=== PATIENT | female | born 1975 | race Caucasian/White ===

== ENCOUNTER → 2023-11-18 13:31 | Outpatient (REF) | payer BC, SELFPAY ==
[2023-11-18 14:03] VITALS: BP 116/68; BP_SYST 70
== END ==
LOC: RADI 13:31
PROVIDERS: ATTENDING PHYSICIAN Otolaryngology; FAMILY PHYSICIAN Physician Assistant Medical
DX: E04.1 Nontoxic single thyroid nodule (principal)
CPT/HCPCS: 88173; 10005

== ENCOUNTER → 2024-06-17 15:23 | Outpatient (REF) | payer BC, SELFPAY | LOC: WDC 15:23 | PROVIDERS: ATTENDING PHYSICIAN Physician Assistant Medical | DX: Z12.31 Encounter for screening mammogram for malignant neoplasm of breast (principal) | CPT/HCPCS: 77063; 77067 ==

== ENCOUNTER → 2024-07-21 06:15 | Day surgery (SDC) | payer BC, SELFPAY | LOC: GI 06:15 | PROVIDERS: ATTENDING PHYSICIAN Internal Medicine; FAMILY PHYSICIAN Physician Assistant Medical | DX: Z12.11 Encounter for screening for malignant neoplasm of colon (principal); C20 Malignant neoplasm of rectum; D12.2 Benign neoplasm of ascending colon; D12.3 Benign neoplasm of transverse colon; D12.5 Benign neoplasm of sigmoid colon; K21.9 Gastro-esophageal reflux disease without esophagitis; K29.50 Unspecified chronic gastritis without bleeding; B96.81 Helicobacter pylori [H. pylori] as the cause of diseases classified elsewhere | CPT/HCPCS: 45385; 45380; 43239; 88305; 88342 ==

== ENCOUNTER → 2024-07-28 11:35 | Outpatient (REF) | payer BC, SELFPAY | LOC: RAD 11:35 | PROVIDERS: ATTENDING PHYSICIAN Surgery; FAMILY PHYSICIAN Physician Assistant Medical | DX: C20 Malignant neoplasm of rectum (principal) | CPT/HCPCS: 71260; 74177; Q9967 ==

== ENCOUNTER → 2024-08-01 11:28 | Outpatient (REF) | payer BC, SELFPAY | LOC: MRI 3T 11:28 | PROVIDERS: ATTENDING PHYSICIAN Surgery; FAMILY PHYSICIAN Physician Assistant Medical | DX: C20 Malignant neoplasm of rectum (principal) | CPT/HCPCS: 72197; A9575 ==

== ENCOUNTER 2024-10-19 06:16 | Day surgery (SDC) | payer BC, SELFPAY ==
[2024-10-18 10:48] LABS: Hematocrit 33.3 % (37.0-47.0); Hemoglobin 10.9 g/dL (12.0-16.0); Mean Corp Hgb Conc. 32.7 g/dL (33.0-37.0); Mean Corpuscular Hgb 31.3 pg (27.0-31.0); Mean Corpuscular Volume 95.7 fL (81.0-99.0); Mean Platelet Volume 8.9 fL (7.4-10.4); Platelet Count 220 10^3/uL (130-400); Red Blood Cell Count 3.48 10^6/uL (4.20-5.40); Red Cell Dist. Width 19.5 % (11.5-14.5); White Blood Cell Count 3.3 10^3/uL (4.8-10.8)
[2024-10-18 12:34] LABS: Blood Urea Nitrogen 9 mg/dl (7-17); Calcium 8.6 mg/dl (8.4-10.2); Carbon Dioxide 24 mmol/L (22-30); Chloride 105 mmol/L (98-107); Glucose 89 mg/dl (70-99); Potassium 3.5 mmol/L (3.5-5.1); Sodium 137 mmol/L (135-145); eGFR > 60.00
[2024-10-18 13:31] VITALS: BMI 25.1
[2024-10-19 06:40] VITALS: BP 121/73
[2024-10-19] MEDS: TYLENOL 1000 MG PO (06:50)
[2024-10-19] MEDS: NORMOSOL-R/PLASMALYTE-A 1000 IV (06:50)
[2024-10-19 06:55] VITALS: BMI 25.1
[2024-10-19 08:27] VITALS: BP 102/53
[2024-10-19 08:30] VITALS: BP 96/60
[2024-10-19 08:45] VITALS: BP 103/61
[2024-10-19 09:00] VITALS: BP 109/67
== END 2024-10-19 09:40 | disposition home or self-care (01) ==
LOC: SDS 06:16
PROVIDERS: ATTENDING PHYSICIAN Surgery; FAMILY PHYSICIAN Physician Assistant Medical
DX: C20 Malignant neoplasm of rectum (principal)
CPT/HCPCS: 36561; 36415; 71045; 76000; 80048; 85027; C1788

== ENCOUNTER 2024-11-02 13:45 | Inpatient (IN) | payer BC, SELFPAY ==
[2024-11-02] VITALS (13 sets, daily range): BP systolic 84–116; BP diastolic 52–70; BMI 29.0
--- NOTE | 2024-11-02 10:17 | ED.GENMED ---
History of Present Illness
General
Chief Complaint: Fainting/Passed Out
Source: patient and spouse
Exam Limitations: none
Time Seen by Provider: 11/02/24 09:38
Nursing documentation reviewed up to this point in time: agreed with
History of Present Illness
History of Present Illness:
The patient is a very pleasant 49-year-old female with a past medical history of rectal cancer followed by Dr. English. Patient reports she last had chemotherapy 8 days ago. Patient is here with complaints of about 1 week of subjective fever,
chills, body ache, fatigue, and cough. Patient reports that things seem to intensify last night, as her chills increased and her cough worsened. Patient reports right upper back pain, especially when she coughs. Patient reports multiple family
members also have cough and congestion. Patient reports that when she went to stand up this morning she felt lightheaded and called out for her . Patient reports that she passed out but did not fall due to her assisting her.
Patient reports she just feels dehydrated. Patient denies a history of PE and DVT
Past History
Past History
ED Past Medical History: Cancer (Rectal cancer)
ED Past Surgical History: Other
Social History
Tobacco: Non-smoker
Alcohol: Other
Drug: None
Personal:
Living: with family
Employment: Other
Family History
Family History: Other
Review of Systems
Review of Systems
Allergies reviewed?: Yes
All Other Systems: ROS reviewed and negative except as documented in HPI and ROS
Constitutional: Reports fever, fatigue and chills
Respiratory: Reports cough
Cardiac: Reports syncope
ABD/GI: Reports diarrhea
: Reports no symptoms
Musculoskeletal: Reports other (Right upper back pain)
Neurological: Reports no symptoms
Endocrine: Reports no symptoms
Hematologic/Lymphatic: Reports no symptoms
Psychiatric: Reports no symptoms
Phy Exam
Physical Exam
Physical Exam:
Physical Exam
General: no apparent distress, not acutely ill
Neck: supple. no meningeal signs. normal psoterior pharynx
Heart: s1/s2 regular rate and rhythm, no murmur. equal radial pulses.
Lungs: no acute respiratory distress. clear bilaterally
Abdomen: normal bowel sounds. not tender. no CVAT
Neuro: alert and oriented. no focal neurological deficits
Skin: no rash
Psychiatric: well kept. interactive and cooperative
Extremities: no edema. no calf tenderness. negative homans. good distal pulses
Course
Orders/Labs/Results
Orders:
Orders
11/02/24 09:32
ECG [Electrocardiogram (*1)] Urgent
Reason for Study: Syncope
11/02/24 09:33
EKG- Treatment ONCE
11/02/24 10:02
CR Chest - 2 Views Urgent
Comment:
Reason For Exam: cough, chemo, R upper back pain
11/02/24 10:04
0.9% Sodium Chloride 1000 ml [Nss] 1,000 ml IV BOLUS
11/02/24 10:11
Complete Blood Count/With Diff Urgent
Comprehensive Metabolic Panel Urgent
Lactate Level [Lactic Acid] Urgent
Manual Differential Urgent
PTT Urgent
Prothrombin Time Urgent
Troponin I Urgent
11/02/24 10:26
COVID-19 Antigen Urgent
Source: Nasal Swab
Influenza A+B Rapid Molecular Urgent
TIMBO Source: Nasal Swab
Specimen Description:
11/02/24 10:45
0.9% Sodium Chloride 250 ml [Nss] 250 ml IV BOLUS
11/02/24 11:13
Blood Culture Urgent
TIMBO Source: Blood/Venous
Specimen Description:
11/02/24 11:38
Piperacillin/Tazo 3.375 Gram [Zosyn] 3.375 gram in 50 ml IV NOW
Vancomycin [Vancocin] 2,000 mg 0.9% Sodium Chloride 500 ml [Nss] 500 ml IV NOW
Abnormal Lab Results
11/02/24
10:11
WBC 4.7 L 10^3/uL
(4.8-10.8)
RBC 3.39 L 10^6/uL
(4.20-5.40)
Hgb 10.4 L g/dL
(12.0-16.0)
Hct 30.7 L %
(37.0-47.0)
RDW 17.6 H %
(11.5-14.5)
Plt Count 107 L 10^3/uL
(130-400)
Band Neutrophils 15 H %
(0-3)
Lymphocytes (Manual) 5 L %
(20-51)
PT 15.3 H Sec
(11.4-14.6)
Sodium 130 L mmol/L
(135-145)
Carbon Dioxide 18 L mmol/L
(22-30)
Glucose 180 H mg/dl
(70-99)
Lactic Acid 4.3 H* mmol/L
(0.7-2.0)
Calcium 8.0 L mg/dl
(8.4-10.2)
ALT 43 H U/L
(0-35)
Total Protein 5.7 L g/dl
(6.3-8.2)
Albumin 3.2 L g/dl
(3.5-5.0)
11/02/24 10:11
11/02/24 10:11
Vital Signs
Initial and Last Documented VS:
Initial Vital Signs
Pulse Resp BP Pulse Ox
75 16 84/52 100
11/02/24 09:24 11/02/24 09:24 11/02/24 09:24 11/02/24 09:24
Last Documented Vital Signs
Temp Pulse Resp BP Pulse Ox
97.6 F 83 21 94/58 100
11/02/24 09:44 11/02/24 11:00 11/02/24 11:00 11/02/24 11:00 11/02/24 11:00
MDM/Problems Addressed
Differential Diagnosis Includes:
Acute dehydration, pneumonia, neutropenia, anemia
MDM/Problems Addressed:
Patient presents with acute body aches, chills, right upper back pain and cough
Chronic conditions affecting care: Cancer
Acute Exacerbation and/or Progression of Chronic Illness:
Patient's chemotherapy may be causing an acute neutropenia which in the setting of pneumonia can cause more worsening infection
Acute Exacerbation and/or Progression of Chronic Illness: Cancer
*Radiology
Radiology exam reviewed: preliminary read by ED provider (Right-sided infiltrate. Chest x-ray reviewed by me)
*Pulse Oximetry
Patient hypoxic: no
*EKG
Interpreted by ED Provider?: Yes
Interpretation: normal
Comparison EKG: no comparison EKG present
Rate: normal
Rhythm: sinus
[place]: normal axis
Interval: normal interval
QRS Pattern: normal QRS
Ischemia: no ischemia
*Mail Handler Sorter Interpretation
Rate: normal
Interpretation: normal
Rhythm: sinus
*Critical Care Note
Total Time (30-74mins, 75-104mins- exclusive of procedures): Not Applicable (45 minutes)
comment:
45 minutes of critical care given to the patient including reviewing her lab work, chest x-ray, and reviewing her outpatient office records, as well as reassessing her blood pressure
Data Reviewed
Review of Other/Old Records Reveals: Progress Notes (Office note reviewed from Dr. Xiang Baltazar from July 2024 discussing patient's rectal cancer diagnosis)
ED Attending Note
-
Portions of this chart may have been created with voice recognition software.� Occasional wrong word or��sound alike� substitutions may have occurred due to the inherent limitations of voice recognition software.
Discharge Plan
Departure
Patient Disposition: Admit
Date of Disposition: 11/02/24
Time of Disposition: 11:39
Admit to: Telemetry
Presentation/result/management discussed w/ accepting MD/DO: Hospitalist
Patient with high blood pressure during this ER visit?: No
Condition: Fair
Covid-19: Negative COVID-19
Discharge Problem:
Pneumonia, Transient hypotension, Acute lactic acidosis
Prescriptions:
No Action
ibuprofen [Advil] 200 mg Tablet
400 mg PO DAILYPRN PRN (Reason: mild pain)
simethicone [Gas-X] 80 mg Tablet,Chewable
160 mg PO DAILYPRN PRN (Reason: gas pains)
Fruit and Vegetable Daily 5-6-150 mg Capsule
1 cap PO DAILY
Folfox
1 dose IV DIRECTED
Rx Instructions:
FOLFOX regimen, last doses were 10/25/24, Oxaliplatin 154mg, leucovorin 724mg, Fluorouracil 720mg ivp and 4340mg iv over 46hrs
Referrals:
Kathy King PA-C [Family Provider] -
Interventions
Interventions:
*Risk Screen - Suicide Last Done: 11/02/24 09:24
*General Assessment Last Done: 11/02/24 09:24
*ED COVID-19 Vaccine History Last Done: 11/02/24 09:24
ED- Cardiac Assessment Last Done: 11/02/24 09:49
ED- Neurological Assessment Last Done: 11/02/24 09:49
Discharge Date and Time
Print Language: UKRAINIAN
[2024-11-02] MEDS: NSS 1000 IV ×2 (10:24→14:40)
[2024-11-02 10:39] LABS: Hematocrit 30.7 % (37.0-47.0); Hemoglobin 10.4 g/dL (12.0-16.0); Mean Corp Hgb Conc. 33.9 g/dL (33.0-37.0); Mean Corpuscular Hgb 30.7 pg (27.0-31.0); Mean Corpuscular Volume 90.6 fL (81.0-99.0); Mean Platelet Volume 9.3 fL (7.4-10.4); Platelet Count 107 10^3/uL (130-400); Red Blood Cell Count 3.39 10^6/uL (4.20-5.40); Red Cell Dist. Width 17.6 % (11.5-14.5); White Blood Cell Count 4.7 10^3/uL (4.8-10.8)
[2024-11-02 10:42] LABS: INR 1.15; PT 15.3 Sec (11.4-14.6)
[2024-11-02 10:43] LABS: APTT 28.5 Sec (23.4-35.0); Lactic Acid 4.3 mmol/L (0.7-2.0)
[2024-11-02 10:48] LABS: AST (SGOT) 30 U/L (14-36); Albumin 3.2 g/dl (3.5-5.0); Alkaline Phosphatase 62 U/L (38-126); Blood Urea Nitrogen 12 mg/dl (7-17); Carbon Dioxide 18 mmol/L (22-30); Chloride 102 mmol/L (98-107); Estimated Creatinine Clearance 91 ml/min; Glucose 180 mg/dl (70-99); Potassium 4.2 mmol/L (3.5-5.1); Sodium 130 mmol/L (135-145); Total Bilirubin 0.4 mg/dl (0.2-1.3); Total Protein 5.7 g/dl (6.3-8.2); eGFR > 60.00
[2024-11-02 10:54] LABS: Troponin I < 0.012 ng/ml
[2024-11-02 10:56] LABS: ALT (SGPT) 43 U/L (0-35)
[2024-11-02 11:02] LABS: COVID-19 Antigen Negative (Negative)
[2024-11-02 11:07] LABS: Absolute Neutrophils -Man Diff 4.2 10^3/uL (1.4-6.5); Band Neutrophils 15 % (0-3); Lymphocytes 5 % (20-51); Monocytes 5 % (2-9); Normal RBC Morphology Yes; Platelets Checked Yes; Segmented Neutrophils 75 % (42-75); Total Cells Counted 100
[2024-11-02] MEDS: NSS 250 IV (11:32)
[2024-11-02] MEDS: ZOSYN 50 IV (11:53)
--- NOTE | 2024-11-02 12:04 | HPS.HSE ---
Family Physician
-
Family Physician: Kathy King PA-C
Chief Complaint
-
fever
cough
chills
History of Present Illness
49-year-old female with a past medical history of rectal cancer followed by Dr. English presented to us with fever, chills, cough which is productive since the . patient stated temp of 102. she took ibuprofen as well as Mucinex with some relief
in her symptoms. Last night her symptoms intensified with fever chills, generalized body ache, fatigue and cough. She complained of headache today morning. Today morning, she felt lightheaded and passed out for few seconds. Patient denied chest
pain or shortness of breath. Patient denied abdominal pain, nausea, vomiting. She has diarrhea from chemo. Her chemo was 8 days ago. She is due for chemo on Thursday. Patient denied dysuria hematuria.
On arrival she was noted to have elevated lactic acid fall, patient was hypotensive. Chest x-ray with pneumonia. Patient received normal saline, Zosyn, Vanco in ER blood culture sent from ER. Admitting for further management
Medical History
Past Medical History
Past Medical History: Reports Other
Additional Past Medical History:
Insomnia
GERD
Laryngeal spasm
Rectal pain
Past Surgical History: Reports Other
Additional Past Surgical History:
Liposuction
Social History
Tobacco: Former Smoker
Alcohol: Occasional
Drug: None
Personal:
Living: With Family
Family History
Family History: Not pertinent
Allergies / Home Medications
Allergies reflects when Allergies were last updated in [employer].
Home Medications with original date entered in [employer]
Allergy/Medication List:
Allergies
Allergy/AdvReac Type Severity Reaction Status Date / Time
No Known Allergies Allergy Verified 11/02/24 09:29
Home Medications
Folfox 1 dose IV DIRECTED 11/02/24
ibuprofen 200 mg tablet (Advil) 400 mg PO DAILYPRN PRN mild pain 11/02/24
rctafbkp-lvohaj-kjreo extract 5 mg-6 mg-150 mg capsule (Fruit and Vegetable Daily) 1 cap PO DAILY 11/02/24
simethicone 80 mg chewable tablet 160 mg PO DAILYPRN PRN gas pains 11/02/24
Review of Systems
-
Constitutional: Reports Fever, Fatigue and Chills
EENT: Reports No Symptoms
Respiratory: Reports Cough
Cardiac: Reports Syncope
Abdomen/GI: Reports No Symptoms
: Reports No Symptoms
Musculoskeletal: Reports No Symptoms
Skin: Reports No Symptoms
Neurological: Reports Weakness
Endocrine: Reports No Symptoms
Hematologic/Lymphatic: Reports No Symptoms
Psych: Reports No Symptoms
Physical Exam
Vital Signs
Vital Signs
Temp Pulse Resp BP Pulse Ox
97.6 F 89 21 90/62 100
11/02/24 09:44 11/02/24 11:45 11/02/24 11:45 11/02/24 11:34 11/02/24 11:45
Physical Exam
General: Well Developed, Well Nourished and No Apparent Distress
HEENT: NormoCephalic, Moist mucous membranes and Atraumatic
Respiratory: Clear
Cardiac: S1/S2 and Regular Rhythm; No Murmur or Rub
GI: Soft, Non Tender, Non Distended and Normal Bowel Sounds; No Organomegaly
Rectal: Deferred by Provider
Musculoskeletal: No Clubbing, No Cyanosis and No Edema
Skin: No Rash
Neuro: AO x 3 and Nonfocal/grossly intact
Psych: Calm
Laboratory Results
-
11/02/24 10:11
11/02/24 10:11
Laboratory Results
PT 15.3 Sec (11.4-14.6) H 11/02/24 10:11
INR 1.15 11/02/24 10:11
APTT 28.5 Sec (23.4-35.0) 11/02/24 10:11
Lactic Acid 4.3 mmol/L (0.7-2.0) H* 11/02/24 10:11
Total Bilirubin 0.4 mg/dl (0.2-1.3) 11/02/24 10:11
AST 30 U/L (14-36) 11/02/24 10:11
ALT 43 U/L (0-35) H 11/02/24 10:11
Alkaline Phosphatase 62 U/L (38-126) 11/02/24 10:11
Troponin I < 0.012 ng/ml 11/02/24 10:11
Data Reviewed
-
Diagnostic Radiology: Report Reviewed by me
Lab Data: Labs Reviewed by me
Impression/Plan
-
#sob,cough likely from community acquired pneumonia
-sepis as evident by lactic 4.3 and hypotension
-covid negative
-chest x ray with Right lower lobe opacification most likely representing pneumonia. Follow-up imaging to confirm complete resolution recommended.
-blood culture sent from ER
-flu negative
-iv vanco and zosyn
-urine legionella, strep pneumoniae
-tylenol prn for fever
-ctm
-fluids continued for hydration and manage hypotension
#rectal ca
-on chemo
-last chemo 8 days ago, next due on Thursday
-follow[facility]
#anemia of chronic disease
#leukopenia likely from chemo
-hgb stable at 10.4
-no active bleeding
-ctm
#hyponatremia likely from metastatic disease
#metabolic acidosis
-na 130
-ctm
#DVT prophylaxis
-Lovenox
#CODE status
-full code
[2024-11-02] MEDS: VANCOCIN 540 MG IV (12:35)
--- NOTE | 2024-11-02 13:09 | W.PN.UPDATE ---
Update Note
Progress Note Update
This is an addendum to the H&P written but she was .� Patient seen examined independently with PINION ST[employer]ER.
49-year-old female past medical history of rectal cancer chemotherapy 8 days ago, presenting with 1 week of subjective fevers, chills, body aches, fatigue and cough.� Lightheadedness this morning.� Patient had a syncopal episode today.
Labs show chronic leukopenia.� Stable anemia.� Mild thrombocytopenia.� Lactic acid 4.3.� Mild metabolic acidosis.
Chest x-ray shows right lower lobe opacification likely pneumonia.
COVID and influenza negative.
Sepsis secondary to pneumonia.� Check blood cultures.� IV fluids.� Vancomycin/Zosyn given, continue..� Syncope secondary to hypotension.
[2024-11-02] MEDS: TYLENOL 650 MG PO ×2 (16:09→23:11)
--- NOTE | 2024-11-02 19:00 | PTCARENOTE ---
Addendum entered by Anshul Carr RN 11/03/24 02:27:
Patient received at 1900, AAOX4 able to make needs known. IV flushed and patent. Patient ambulatory to bathroom. Patient medicated per MAR, assessment documented in flowsheet.
Original Note:
Patient received at 0700, AAOX4 able to make needs known. IV flushed and patent. Patient ambulatory to bathroom. Patient medicated per DEC, assessment documented in flowsheet.
[2024-11-02] MEDS: ZOSYN 100 IV ×2 (19:58→23:11)
[2024-11-02 20:24] LABS: Lactic Acid 2.3 mmol/L (0.7-2.0)
--- NOTE | 2024-11-02 21:01 | PHA.VAN.IN ---
Assessment
- Assessment
Renal Function: Appears similar to baseline
Concomitant Antimicrobials: ZOSYN
- Previous Dosing Experience
Previous Regimen: NONE
AUC Dosing Plan
- Dosing Variables
Dosing Weight (kg): 71.8
Dosing CrCl (ml/min): 91
Vd coefficient (L/kg): 0.7
- Empiric Dosing
Initial / Loading Dose: 2GM
Maintenance Regimen: 1GM IV Q12H
Estimated AUC (mcg*h/mL): 518
Estimated Peak (mcg*h/mL): 32.3
Estimated Trough (mcg/ml): 13.4
Estimated Half Life (H): 8.7
Pharmacokinetics Vancomycin I
- -
Patient Age: 49
Patient Sex: Female
Vancomycin Day #: 1
Indication: Bacteremia (PNEUMONIA)
Requesting Provider: BAL
Height / Weight:
Height 5 ft 2 in
Actual Weight 71.8 kg
Pertinent Past Medical History: RECTAL CA WITH CHEMO
- Vital Signs / Lab Results
Temp Pulse Resp BP Pulse Ox
99.3 F 97 18 96/58 97
11/02/24 19:44 11/02/24 19:44 11/02/24 19:44 11/02/24 19:44 11/02/24 19:44
Lab Results - Hematology
11/02/24
10:11
WBC 4.7 L
Band Neutrophils 15 H
Lab Results - Chemistry
11/02/24
10:11
BUN 12
Creatinine 0.7
Estimated Creat Clear 91
Albumin 3.2 L
11/02/24 11/02/24
10:11 20:04
Lactic Acid 4.3 H* 2.3 H
Microbiology Results
11/02/24 13:09 Gram Stain - Preliminary
Sputum
11/02/24 10:26 Influenza Types A & B (KELIN) - Final
Nasal Swab Negative for Influenza A & B, NAAT
Negative results must be combined with clinical observations
and patient history.
Nucleic Acid Amplification test (NAAT)performed on the
[employer] platform.
[2024-11-02] MEDS: LOVENOX 40 MG SC (22:02)
[2024-11-03] VITALS (8 sets, daily range): BP systolic 77–120; BP diastolic 41–73; BMI 26.1
[2024-11-03 00:39] LABS: Lactic Acid 0.9 mmol/L (0.7-2.0)
[2024-11-03] MEDS: NSS 1000 IV ×2 (02:20→12:52)
[2024-11-03] MEDS: NSS 250 IV (03:23)
--- NOTE | 2024-11-03 04:00 | PTCARENOTE ---
Patient BP 77/41, covering provider BAR POINTER Ree Reynolds is aware. 250ml NS bolus ordered. Bolus given per order, recheck of BP 90/52, covering provider is aware.
[2024-11-03] MEDS: ZOSYN 100 IV ×2 (05:05→11:35)
[2024-11-03 05:27] LABS: Hematocrit 24.7 % (37.0-47.0); Hemoglobin 8.5 g/dL (12.0-16.0); Mean Corp Hgb Conc. 34.4 g/dL (33.0-37.0); Mean Corpuscular Hgb 31.5 pg (27.0-31.0); Mean Corpuscular Volume 91.5 fL (81.0-99.0); Mean Platelet Volume 9.7 fL (7.4-10.4); Platelet Count 109 10^3/uL (130-400); White Blood Cell Count 4.2 10^3/uL (4.8-10.8)
[2024-11-03] MEDS: VANCOCIN 200 IV ×2 (05:38→17:04)
[2024-11-03 05:39] LABS: Blood Urea Nitrogen 8 mg/dl (7-17); Calcium 7.4 mg/dl (8.4-10.2); Carbon Dioxide 19 mmol/L (22-30); Chloride 111 mmol/L (98-107); Estimated Creatinine Clearance 88 ml/min; Glucose 94 mg/dl (70-99); Potassium 3.2 mmol/L (3.5-5.1); Sodium 137 mmol/L (135-145); eGFR > 60.00
[2024-11-03] MEDS: TYLENOL 650 MG PO (08:03)
--- NOTE | 2024-11-03 09:20 | PHA.VAN.FU ---
Vancomycin Assessment / Plan
- Assessment
Concomitant Antimicrobials: piperacillin-tazobactam
- Dosing Plan
Continue: vancomycin 1000 mg q12h
- Monitoring Plan
No level(s) ordered at this time: consider levels in next few days
- Follow Up
Pharmacy will continue to follow.
Vancomycin Follow UP
- -
Patient Age: 49
Patient Sex: Female
Vancomycin Day #: 2
Indication: Bacteremia (PNEUMONIA)
Requesting Provider: BAL
Height / Weight:
Height 5 ft 5 in
Actual Weight 71.259 kg
Pertinent Past Medical History: RECTAL CA WITH CHEMO
- Vital Signs / Lab Results
Temp Pulse Resp BP Pulse Ox
99.7 F 87 17 103/60 97
11/03/24 07:20 11/03/24 07:20 11/03/24 07:20 11/03/24 07:20 11/03/24 08:00
Lab Results - Hematology
11/02/24 11/03/24
10:11 05:01
WBC 4.7 L 4.2 L
Band Neutrophils 15 H
Lab Results - Chemistry
11/02/24 11/03/24
10:11 05:01
BUN 12 8
Creatinine 0.7 0.7
Estimated Creat Clear 91 88
Albumin 3.2 L
11/02/24 11/02/24 11/02/24
10:11 15:00 20:04
Lactic Acid 4.3 H* Cancelled 2.3 H
11/02/24
23:59
Lactic Acid 0.9
Microbiology Results
11/03/24 06:35 Legionella Urinary Antigen - Final
Urine Negative for Legionella pneumophila Serogroup 1 antigen.
A negative result does not rule out the possiblity of
Legionella infection due to other serogroups or species of
Legionella. Clinical correlation is recommended.
Streptococcus pneumoniae Antigen (M - Final
Positive for Strep pneumo Ag
11/02/24 13:09 Gram Stain - Preliminary
Sputum
11/02/24 10:26 Influenza Types A & B (KELIN) - Final
Nasal Swab Negative for Influenza A & B, NAAT
Negative results must be combined with clinical observations
and patient history.
Nucleic Acid Amplification test (NAAT)performed on the
[employer] platform.
--- NOTE | 2024-11-03 09:45 | W.PN.HOSP.TC ---
Today's Communication/Plan
-
Change antibiotics to IV Rocephin
Continue supportive care
Assessment / Plan
Assessment / Plan
49-year-old female past medical history of rectal cancer chemotherapy 8 days ago, presenting with 1 week of subjective fevers, chills, body aches, fatigue and cough.� Lightheadedness this morning.� Patient had a syncopal episode today.
Labs show chronic leukopenia.� Stable anemia.� Mild thrombocytopenia.� Lactic acid 4.3.� Mild metabolic acidosis.
Chest x-ray shows right lower lobe opacification likely pneumonia.
COVID and influenza negative.
#Sepsis secondary to pneumonia
Currently on vancomycin and zosyn
Urinary strep positive, will change Zosyn to rocephin
F/u MRSA PCR, continue vanc until results
Trend fever/WBC
#Rectal ca
last chemo 8 days ago, next due on Thursday
follow[facility] - Dr. English
#anemia of chronic disease
#leukopenia likely from chemo
monitor
#hyponatremia likely from metastatic disease
#metabolic acidosis
#hypokalemia
replete
DVT prophylaxis - SQ Lovenox
Full code
Total time spent to see the patient on the floor, examine the patient, review data and lab results, discuss treatment plan with patient, nursing staff around 45 minutes.
Physical Exam
General: No acute distress
HEENT: Normocephalic, Atraumatic, EOMI, MMM
Respiratory: Clear to Auscultation bilaterally
Cardiac: Normal S1/S2, Regular Rate and Rhythm
GI: Soft, Nontender, Nondistended, Normal Bowel Sounds
Extremities: No Clubbing, Cyanosis, or Edema
Neuro: Nonfocal/Grossly Intact
Psych: Calm, Cooperative
Derm: No Visible lesions
Anticipated Discharge: Within 24 hours
Subjective/Interval History
-
Date of Service: November 03, 2024
Patient denies shortness of breath. She is coughing. Last fever yesterday evening. No chest pain, no vomiting.
Objective Data
-
Labs:
Laboratory Results
11/03/24
05:01
WBC 4.2 L
Hgb 8.5 L
Hct 24.7 L
Plt Count 109 L
Sodium 137
Potassium 3.2 L
Chloride 111 H
Carbon Dioxide 19 L
BUN 8
Creatinine 0.7
Glucose 94
Calcium 7.4 L
Vital Signs:
Vital Signs
Temp Pulse Resp BP Pulse Ox
99.7 F 87 17 103/60 97
11/03/24 07:20 11/03/24 07:20 11/03/24 07:20 11/03/24 07:20 11/03/24 08:00
I&O
11/02/24 11/03/24 11/04/24
06:59 06:59 06:59
Intake Total 1160 / 1160 420 / 420
Balance 1160 / 1160 420 / 420
--- NOTE | 2024-11-03 09:54 | CON.ONC ---
Documented by User: [email or web address] Avila 11/03/24 12:23
Impression
Impression
PNA/sepsis
rectal ca s/p [id number] 10/25. She did not receive GCSF with this cycle
pancytopenia secondary to antineoplastic therapy
Plan
Plan
IVF, IV abx, sepsis management per primary service
OP follow up with Dr. English for continued management of rectal cancer upon discharge
Patient History
History of Present Illness
49yo F with rectal carcinoma presented with fever, chills, and productive cough. She reports productive cough since 10/23 with Tmax 102F. She has been using Tylenol and Mucinex for her symptoms of fever, chills, and myalgias. She felt lightheaded
and 'passed out' for a few seconds 11/02 which prompted her to seek further evaluation in the ER. Initial evaluation was notable for hypotension. CXR with PNA, and labs with pancytopenia.
She is known to Dr. English for management of
Past-Medical/Surgical History
Past�Medical�History obesity insomnia reflux laryngospasm
[facility] D&E Liposuction
Social�History former smoker. Current�alcohol�user.�Patient�reports�an�average�of�6�-8�drinks�per�week. Marital�Status:�Patient�is��with�1�chilD.
Patient Medication
�Medication �Instructions �Recorded �Confirmed �Last Taken �Type
Folfox 1 dose IV DIRECTED 11/02/24 11/02/24 10/25/24 History
ibuprofen 200 mg tablet (Advil) 400 mg PO DAILYPRN PRN mild pain 11/02/24 11/02/24 11/02/24 History
ovedxsup-dzvcdg-xxzop extract 5 1 cap PO DAILY 11/02/24 11/02/24 Unknown History
mg-6 mg-150 mg capsule (Fruit and
Vegetable Daily)
simethicone 80 mg chewable tablet 160 mg PO DAILYPRN PRN gas pains 11/02/24 11/02/24 Unknown History
Active Medications
Generic Name Dose Route Start Last Admin
Trade Name Freq PRN Reason Stop Dose Admin
Acetaminophen 650 mg 11/02/24 15:00 11/03/24 08:03
Acetaminophen 325 Mg Tablet PO 11/30/24 14:59 650 mg
Q4HPRN PRN Administration
if temp > 101 F
Enoxaparin Sodium 40 mg 11/02/24 21:32 11/02/24 22:02
Enoxaparin Sodium 40 Mg/0.4 Ml Syringe SC 11/30/24 21:31 40 mg
QPM HANK Administration
Sodium Chloride 1,000 mls @ 80 mls/hr 11/02/24 14:39 11/03/24 02:20
Nss IV 1,000 mls
.[id number] HANK Administration
Piperacillin Sod/Tazobactam Sod 4.5 gram in 100 mls @ 200 mls/hr 11/02/24 18:00 11/03/24 05:05
Zosyn IV 100 mls
Q6H HANK Administration
Vancomycin HCl 1 gram in 200 mls @ 200 mls/hr 11/03/24 06:00 11/03/24 05:38
Vancocin IV 200 mls
Q12H HANK Administration
Protocol
Sodium Chloride 0 flush 11/02/24 15:00
Sodium Chloride 0.9% (Flush) Syringe IV 11/30/24 14:59
PER PROTOCOL HANK
Review of Systems
-
ROS notable for HPI, otherwise negative
Physical Exam
-
General:�Well�developed,�well�nourished�patient.�In�no�acute�distress. Head:�Atraumatic�and�normocephalic. Eyes:�Sclerae�are�anicteric.�Conjunctivae�and�lids�are�normal�in�appearance. Ears,�Nose,�Throat,�and�Mouth:�Normal�oral�mucosa�and�oropharynx.
Neck:�Neck�is�supple. Lungs:�No�respiratory�distress. Hematologic/Lymphatic:�No�petechia. Musculoskeletal:�Normal�range�of�motion.�Strength�and�Tone�are�normal. Skin:Non�jaundiced.�No�petechia.�No�purpura.
Neurologic:�Speech�is�fluent.�Normal�gait�and�station.
Labs
Lab Results
WBC 4.2 10^3/uL (4.8-10.8) L 11/03/24 05:01
RBC 2.70 10^6/uL (4.20-5.40) L 11/03/24 05:01
Hgb 8.5 g/dL (12.0-16.0) L 11/03/24 05:01
Hct 24.7 % (37.0-47.0) L 11/03/24 05:01
MCV 91.5 fL (81.0-99.0) 11/03/24 05:01
MCH 31.5 pg (27.0-31.0) H 11/03/24 05:01
MCHC 34.4 g/dL (33.0-37.0) 11/03/24 05:01
RDW 18.0 % (11.5-14.5) H 11/03/24 05:01
Plt Count 109 10^3/uL (130-400) L 11/03/24 05:01
MPV 9.7 fL (7.4-10.4) 11/03/24 05:01
Creatinine 0.7 mg/dL (0.6-1.0) 11/03/24 05:01
Vital Signs
Vital Signs
Temp Pulse Resp BP Pulse Ox
99.7 F 87 17 103/60 97
11/03/24 07:20 11/03/24 07:20 11/03/24 07:20 11/03/24 07:20 11/03/24 08:00

Documented by User: Ck English DO 11/03/24 11:37
Impression
Impression
PNA/sepsis
Rectal ca s/p [id number] 10/25. She did not receive GCSF with this cycle
ANC 4200
Anemia
Thrombocytopenia
Lymphopenia
Plan
Plan
IVF, IV abx, sepsis management per primary service
OP follow for continued management of rectal cancer upon discharge
Check iron B12 folic acid for possible replete meant post acute illness
Patient History
History of Present Illness
49yo F with rectal carcinoma presented with fever, chills, and productive cough. She reports productive cough since 10/23 with Tmax 102F. She has been using Tylenol and Mucinex for her symptoms of fever, chills, and myalgias. She felt lightheaded
and 'passed out' for a few seconds 11/02 which prompted her to seek further evaluation in the ER. Initial evaluation was notable for hypotension. CXR with PNA, and labs with pancytopenia.
She is known to Dr. English for management of a recent diagnosis of rectal carcinoma.
--- NOTE | 2024-11-03 11:00 | CM ---
spoke to pt in [facility] area, she is prev indep, lives with her husb in a 2 story home with 2 steps to enter. she denies any dc planning needs or dme's. plan is to admit to a bed when avail.
[2024-11-03 13:58] LABS: Iron 32 ug/dl (37-170)
[2024-11-03 14:37] LABS: TSH 3.04 uIU/ml (0.47-4.68)
[2024-11-03 15:12] LABS: Folate 12.2 ng/ml (2.76-20); Vitamin B12 659 pg/ml (239-931)
[2024-11-03] MEDS: KCL 40 MEQ PO (15:39)
[2024-11-03] MEDS: STERILE WATER FOR INJECTION 10 ML IV (17:04)
[2024-11-03] MEDS: LOVENOX 40 MG SC (17:05)
[2024-11-03] MEDS: ROCEPHIN 1000 MG IV (17:05)
[2024-11-03] MEDS: MYLICON 80 MG PO (20:47)
[2024-11-04 03:49] VITALS: BP 111/67
[2024-11-04] MEDS: VANCOCIN 200 IV (05:03)
[2024-11-04 06:21] LABS: Hematocrit 22.7 % (37.0-47.0); Hemoglobin 7.9 g/dL (12.0-16.0); Mean Corp Hgb Conc. 34.8 g/dL (33.0-37.0); Mean Corpuscular Hgb 31.6 pg (27.0-31.0); Mean Corpuscular Volume 90.8 fL (81.0-99.0); Mean Platelet Volume 9.8 fL (7.4-10.4); Platelet Count 122 10^3/uL (130-400); Red Cell Dist. Width 17.6 % (11.5-14.5)
[2024-11-04 06:44] LABS: Blood Urea Nitrogen 5 mg/dl (7-17); Calcium 7.4 mg/dl (8.4-10.2); Carbon Dioxide 19 mmol/L (22-30); Chloride 109 mmol/L (98-107); Estimated Creatinine Clearance 103 ml/min; Glucose 84 mg/dl (70-99); Sodium 137 mmol/L (135-145); eGFR > 60.00
[2024-11-04 07:05] VITALS: BP 112/69
[2024-11-04 08:00] VITALS: BP 111/67
[2024-11-04] MEDS: KCL 260 MEQ IV (08:55)
[2024-11-04] MEDS: KCL 40 MEQ PO ×2 (08:56→14:49)
[2024-11-04 09:06] LABS: Magnesium 1.7 mg/dl (1.6-2.3)
--- NOTE | 2024-11-04 09:06 | PHA.VAN.FU ---
Vancomycin Assessment / Plan
- Assessment
Renal Function: Stable
WBC's are: Trending Down (4.0)
In the past 24 hrs, patient has been: Afebrile
Concomitant Antimicrobials: ceftriaxone
- Dosing Plan
Continue: vancomycin 1000 mg q12H
- Monitoring Plan
Peak Level: 1.31 @2030
Trough Level: 2.1 @0530
- Follow Up
Pharmacy will continue to follow.
Vancomycin Follow UP
- -
Patient Age: 49
Patient Sex: Female
Vancomycin Day #: 3
Indication: Bacteremia (PNEUMONIA)
Requesting Provider: BAL
Height / Weight:
Height 5 ft 5 in
Actual Weight 71.259 kg
Pertinent Past Medical History: RECTAL CA WITH CHEMO
- Vital Signs / Lab Results
Temp Pulse Resp BP Pulse Ox
98.4 F 80 18 111/67 98
11/04/24 08:00 11/04/24 08:00 11/04/24 08:00 11/04/24 08:00 11/04/24 08:00
Lab Results - Hematology
11/02/24 11/03/24 11/04/24
10:11 05:01 05:21
WBC 4.7 L 4.2 L 4.0 L
Band Neutrophils 15 H
Lab Results - Chemistry
11/02/24 11/03/24 11/04/24
10:11 05:01 05:21
BUN 12 8 5 L
Creatinine 0.7 0.7 0.6
Estimated Creat Clear 91 88 103
Albumin 3.2 L
11/02/24 11/02/24 11/02/24
10:11 15:00 20:04
Lactic Acid 4.3 H* Cancelled 2.3 H
11/02/24
23:59
Lactic Acid 0.9
Microbiology Results
11/03/24 15:16 Nasal Screen MRSA (PCR) - Final
Nose MRSA not detected - performed by PCR methodology.
11/02/24 11:13 Blood Culture - Preliminary
Blood/Venous No Growth in 24 hours- Final report to follow
11/02/24 13:09 Respiratory Culture - Preliminary
Sputum Gram Stain - Preliminary
11/03/24 06:35 Legionella Urinary Antigen - Final
Urine Negative for Legionella pneumophila Serogroup 1 antigen.
A negative result does not rule out the possiblity of
Legionella infection due to other serogroups or species of
Legionella. Clinical correlation is recommended.
Streptococcus pneumoniae Antigen (M - Final
Positive for Strep pneumo Ag
11/02/24 10:26 Influenza Types A & B (KELIN) - Final
Nasal Swab Negative for Influenza A & B, NAAT
Negative results must be combined with clinical observations
and patient history.
Nucleic Acid Amplification test (NAAT)performed on the
[employer] platform.
--- NOTE | 2024-11-04 09:57 | W.PN.ONC ---
Documented by User: Stan Fernández DO, Resident 11/04/24 11:23
Today's Communication / Plan
-
Add on absolute neutrophil count, continue monitoring with daily CBC with differential
Added on daily CBC with differential x 5
Patient did not receive GCSF with last cycle of chemotherapy, monitor absolute neutrophil count for neutropenia
Recommend switching to antibiotics with gram-negative coverage for Pseudomonas if ANC drops below 1000 and febrile
Impression
Impression
PNA/sepsis
Rectal ca s/p [id number] 10/25. She did not receive GCSF with this cycle
ANC 4200 on admission
Anemia
Thrombocytopenia
Lymphopenia
B12 and folate within normal limits
Plan
Plan
IVF, IV abx, sepsis management per primary service
Daily CBC with differential to follow ANC count and hemoglobin
Folate and B12 within normal limits
Transfuse if hemoglobin below 7
OP follow for continued management of rectal cancer upon discharge
Subjective/Objective
Subjective/Objective
Vital Signs:
Vital Signs
Temp Pulse Resp BP Pulse Ox
98.4 F 80 18 111/67 98
11/04/24 08:00 11/04/24 08:00 11/04/24 08:00 11/04/24 08:00 11/04/24 08:00
Lab Results:
Laboratory Data
WBC 4.0 10^3/uL (4.8-10.8) L 11/04/24 05:21
Hgb 7.9 g/dL (12.0-16.0) L 11/04/24 05:21
Plt Count 122 10^3/uL (130-400) L 11/04/24 05:21
PT 15.3 Sec (11.4-14.6) H 11/02/24 10:11
INR 1.15 11/02/24 10:11
APTT 28.5 Sec (23.4-35.0) 11/02/24 10:11
eGFR > 60.00 11/04/24 05:21

Documented by User: Darnell Mcclendon MD 11/04/24 12:48
Plan
Plan
IVF, IV abx, sepsis management per primary service
Daily CBC with differential to follow ANC count and hemoglobin
Folate and B12 within normal limits
Transfuse if hemoglobin below 7
OP follow for continued management of rectal cancer upon discharge
Oncology Addendum:
Patient seen and evaluated and agree w/ resident note and plan as outlined
-rectal cancer - s/p 1 cycle FOLFOX - 10/25-10/27 w/o GCSF
-not neutropenic
-admit w/ pneumonia - improved on IV antibiotics
Will f/u as outpt next week for continued tx
[2024-11-04 10:54] LABS: % Basophils 0.5 % (0-2); % Eosinophils 2.5 % (0-6); % Immature Granulocytes 0.5 % (0-0.5); % Monocytes 6.2 % (1.7-9.3); % Neutrophils 78.3 % (42.2-75.2); Absolute Eosinophils 0.1 10^3/uL (0-0.7); Absolute Lymphocytes 0.5 10^3/uL (1.2-3.4); Absolute Monocytes 0.3 10^3/uL (0.1-0.6); Absolute Neutrophils 3.1 10^3/uL (1.4-6.5); Nucleated Red Blood Cells % 0 %
--- NOTE | 2024-11-04 14:13 | W.PN.HOSP.TC ---
Today's Communication/Plan
-
see bold
Assessment / Plan
Assessment / Plan
49-year-old female past medical history of rectal cancer chemotherapy 8 days ago, presenting with 1 week of subjective fevers, chills, body aches, fatigue and cough.� Lightheadedness this morning.� Patient had a syncopal episode today.
#Sepsis secondary to pneumonia
#Immunocompromised state on chemotherapy
COVID and influenza negative.
Was on vancomycin and zosyn
Urinary strep positive, s/p Zosyn, now on rocephin D2
MRSA PCR neg, dc vanc
Fever resolved, medically stable for discharge on cefdinir and doxycycline for 8 more days to complete a 10-day course
#Rectal ca
last chemo 8 days ago, next due on Thursday
[facility] - Dr. English
#anemia of chronic disease
#leukopenia likely from chemo
monitor
#hyponatremia
#metabolic acidosis
#hypokalemia
repleted and resolved, Mg normal
DVT prophylaxis - SQ Lovenox
Full code
Physical Exam
General: No acute distress
HEENT: Normocephalic, Atraumatic, EOMI, MMM
Respiratory: Clear to Auscultation bilaterally
Cardiac: Normal S1/S2, Regular Rate and Rhythm
GI: Soft, Nontender, Nondistended, Normal Bowel Sounds
Extremities: No Clubbing, Cyanosis, or Edema
Neuro: Nonfocal/Grossly Intact
Psych: Calm, Cooperative
Derm: No Visible lesions
Anticipated Discharge: Today
Subjective/Interval History
-
Date of Service: November 04, 2024
Patient reports feeling better. She continues to cough. Denies shortness of breath. Has pleuritic chest pain. Fever resolved. No nausea, no vomiting
Objective Data
-
Labs:
Laboratory Results
11/04/24 11/04/24 11/04/24
05:21 13:56 14:29
WBC 4.0 L
Hgb 7.9 L
Hct 22.7 L
Plt Count 122 L
Sodium 137
Potassium 3.0 L 3.7 Cancelled
Chloride 109 H
Carbon Dioxide 19 L
BUN 5 L
Creatinine 0.6
Glucose 84
Calcium 7.4 L
Vital Signs:
Vital Signs
Temp Pulse Resp BP Pulse Ox
98.8 F 87 18 104/68 99
11/04/24 15:09 11/04/24 15:09 11/04/24 15:09 11/04/24 15:09 11/04/24 15:09
I&O
11/03/24 11/04/24 11/05/24
06:59 06:59 06:59
Intake Total 1160 / 1160 1720 / 1720
Balance 1160 / 1160 1720 / 1720
[2024-11-04 14:31] LABS: Potassium 3.7 mmol/L (3.5-5.1)
[2024-11-04] MEDS: STERILE WATER FOR INJECTION 10 ML IV (14:49)
[2024-11-04] MEDS: ROCEPHIN 1000 MG IV (14:49)
[2024-11-04 15:09] VITALS: BP 104/68
--- NOTE | 2024-11-04 16:13 | W.DCSUMMARY ---
Discharge Summary
Discharge Data
Date of Admission: 11/02/24
Date of Discharge: 11/04/24
-
Pending Results: No
Hospital Course
Discharge diagnosis:
Sepsis
Streptococcus pneumonia
Syncope
Immunocompromised state
Rectal cancer on chemo
Anemia of chronic disease
Leukopenia, from chemo
Hyponatremia
Hypokalemia
Consults: Oncology
Hospital course:
49-year-old female with a past medical history of rectal cancer on chemotherapy was admitted for syncope and sepsis secondary to pneumonia. Patient was treated with IV Zosyn and IV vancomycin. She was positive for urinary Streptococcus antigen.
Her MRSA PCR was negative. Her antibiotics were narrowed to IV Rocephin and doxycycline.
Patient had syncope from hypotension and dehydration. This resolved with IV fluids.
Patient had hypokalemia. This was repleted and resolved.
After several days, her pneumonia resolved. She is medically stable for discharge on cefdinir and doxycycline to complete a 10-day course. She needs to follow-up with her primary care doctor in 1 week, and oncology in the office as scheduled.
Disposition: Home self-care
Discharge planning: Required 41-minutes
Discharge Plan
-
Patient Disposition: Home (Routine Discharge)
Discharge Diagnosis/Procedures: Sepsis, community-acquired pneumonia, hypokalemia, rectal cancer
Condition: Good
Diet: Regular
Activity: As tolerated
Driving Restrictions: As prior to admission
Activity Restrictions/Additional Instructions:
Please rest, drink plenty of fluids, consume foods high in potassium.
You may take [id number] Zarbee's cough syrup as needed for your cough.
Follow-up with your primary care doctor in 1 week, and oncology as scheduled.
Referrals:
Kathy King PA-C [Family Provider] - in one week
Prescriptions:
New
cefdinir 300 mg capsule
300 mg PO BID 8 Days Qty: 16 0RF
doxycycline hyclate 100 mg capsule
100 mg PO BID 8 Days Qty: 16 0RF
guaifenesin [Mucinex] 1,200 mg tablet extended release 12hr
1,200 mg PO BID 14 Days Qty: 28 0RF
Continued
ibuprofen [Advil] 200 mg Tablet
400 mg PO DAILYPRN PRN (Reason: mild pain)
simethicone 80 mg Tablet,Chewable
160 mg PO DAILYPRN PRN (Reason: gas pains)
Fruit and Vegetable Daily 5-6-150 mg Capsule
1 cap PO DAILY
Folfox
1 dose IV DIRECTED
Rx Instructions:
FOLFOX regimen, last doses were 10/25/24, Oxaliplatin 154mg, leucovorin 724mg, Fluorouracil 720mg ivp and 4340mg iv over 46hrs
Discharge Orders:
Discharge Patient (As Directed); Ordered 11/04/24
Ordered By: Rai Jackson
Care Plan Goals
Care Plan Goals:
Problem: Readiness for enhanced knowledge related to diagnosis and treatment plan
Goal: Understand your diagnosis and treatment plan needs, including medications if applicable.
Instructions: Know your diagnosis, underlying causes and treatment plan options, including medications if applicable. Consult with your health care team to learn about your diagnosis and treatment plan, including medications if applicable.
Discharge Date and Time
Discharge Date/Time: 11/04/24 16:08
Print Language: FIJIAN
--- NOTE | 2024-11-04 16:20 | PTCARENOTE ---
patient with occasional pediatric np cough. tolerating diet, independent, vss, will continue to monitor.
--- NOTE | 2024-11-04 16:29 | CM ---
Alert awake oriented patient who lives with her Ana Rosa in a 2 story home with 2 steps to enter and 14 steps to bed/bathroom. She is independent in activates of daily living.Offered VN she declined.
No VN in past . No SNF hx
[facility]
PCP Dr King
PLAN Home with no needs
== END 2024-11-04 16:08 | disposition home or self-care (01) | DRG 871 ==
LOC: 3 WEST ACU 13:45
PROVIDERS: Registered Nurse; ADMITTING PHYSICIAN Hospitalist; ATTENDING PHYSICIAN Family Medicine; CONSULT PHYSICIAN Internal Medicine Hematology & Oncology; EMERGENCY PHYSICIAN Emergency Medicine; FAMILY PHYSICIAN Physician Assistant Medical
DX: A41.9 Sepsis, unspecified organism (principal); D61.810 Antineoplastic chemotherapy induced pancytopenia; J15.4 Pneumonia due to other streptococci; C20 Malignant neoplasm of rectum; E87.1 Hypo-osmolality and hyponatremia; E87.20 Acidosis, unspecified; D84.821 Immunodeficiency due to drugs; K52.1 Toxic gastroenteritis and colitis; D63.0 Anemia in neoplastic disease; E87.6 Hypokalemia; T45.1X5A Adverse effect of antineoplastic and immunosuppressive drugs, initial encounter; R55 Syncope and collapse; K21.9 Gastro-esophageal reflux disease without esophagitis; Z87.891 Personal history of nicotine dependence; Z79.899 Other long term (current) drug therapy; Z20.822 Contact with and (suspected) exposure to COVID-19
CPT/HCPCS: 71046; 80048; 80053; 82607; 82728; 82746; 83540; 83605; 83735; 84132; 84443; 84484; 85025; 85027; 85610; 85730; 87040; 87070; 87071; 87186; 87205; 87449; 87502; 87641; 87811; 87899; 93005; 96361; 96374; 96375; 99291

== ENCOUNTER → 2024-11-07 12:54 | Outpatient (REF) | payer BC, SELFPAY ==
[2024-11-07 12:06] LABS: Hematocrit 28.7 % (37.0-47.0); Hemoglobin 9.8 g/dL (12.0-16.0); Mean Corp Hgb Conc. 34.1 g/dL (33.0-37.0); Mean Corpuscular Volume 90.8 fL (81.0-99.0); Mean Platelet Volume 9.3 fL (7.4-10.4); Platelet Count 275 10^3/uL (130-400); Red Blood Cell Count 3.16 10^6/uL (4.20-5.40); Red Cell Dist. Width 17.3 % (11.5-14.5); White Blood Cell Count 2.4 10^3/uL (4.8-10.8)
[2024-11-07 12:12] LABS: % Basophils 0.9 % (0-2); % Eosinophils 5.5 % (0-6); % Immature Granulocytes 5.5 % (0-0.5); % Lymphocytes 24.7 % (20.5-51.1); % Monocytes 17.4 % (1.7-9.3); ALT (SGPT) 56 U/L (0-35); AST (SGOT) 54 U/L (14-36); Absolute Eosinophils 0.1 10^3/uL (0-0.7); Absolute Immature Granulocytes 0.1 10^3/uL (0-0.05); Absolute Lymphocytes 0.6 10^3/uL (1.2-3.4); Absolute Monocytes 0.4 10^3/uL (0.1-0.6); Absolute Neutrophils 1.1 10^3/uL (1.4-6.5); Alkaline Phosphatase 76 U/L (38-126); Calcium 8.7 mg/dl (8.4-10.2); Carbon Dioxide 21 mmol/L (22-30); Chloride 106 mmol/L (98-107); Glucose 97 mg/dl (70-99); Nucleated Red Blood Cells % 0 %; Potassium 4.1 mmol/L (3.5-5.1); Sodium 138 mmol/L (135-145); Total Bilirubin 0.5 mg/dl (0.2-1.3); eGFR > 60.00
[2024-11-07 12:25] LABS: Blood Urea Nitrogen 13 mg/dl (7-17)
== END ==
LOC: OIDL 12:54
PROVIDERS: ATTENDING PHYSICIAN Nurse Practitioner Adult Health
DX: C20 Malignant neoplasm of rectum (principal)
CPT/HCPCS: 80053; 85025

== ENCOUNTER → 2024-11-08 11:54 | Outpatient (REF) | payer BC, SELFPAY | LOC: RAD 11:54 | PROVIDERS: ATTENDING PHYSICIAN Nurse Practitioner Adult Health; FAMILY PHYSICIAN Physician Assistant Medical | DX: C20 Malignant neoplasm of rectum (principal) | CPT/HCPCS: 71046 ==

== ENCOUNTER → 2024-11-21 14:24 | Outpatient (REF) | payer BC, SELFPAY ==
[2024-11-21 14:29] LABS: % Basophils 0.7 % (0-2); % Eosinophils 3.4 % (0-6); % Lymphocytes 18.2 % (20.5-51.1); % Monocytes 11.8 % (1.7-9.3); % Neutrophils 65.9 % (42.2-75.2); Absolute Eosinophils 0.1 10^3/uL (0-0.7); Absolute Lymphocytes 0.7 10^3/uL (1.2-3.4); Absolute Monocytes 0.5 10^3/uL (0.1-0.6); Absolute Neutrophils 2.7 10^3/uL (1.4-6.5); Hematocrit 28.9 % (37.0-47.0); Hemoglobin 9.6 g/dL (12.0-16.0); Mean Corp Hgb Conc. 33.2 g/dL (33.0-37.0); Mean Corpuscular Hgb 31.7 pg (27.0-31.0); Mean Corpuscular Volume 95.4 fL (81.0-99.0); Mean Platelet Volume 8.3 fL (7.4-10.4); Platelet Count 184 10^3/uL (130-400); Red Blood Cell Count 3.03 10^6/uL (4.20-5.40); Red Cell Dist. Width 16.7 % (11.5-14.5); White Blood Cell Count 4.1 10^3/uL (4.8-10.8)
== END ==
LOC: OIDL 14:24
PROVIDERS: ATTENDING PHYSICIAN Internal Medicine Hematology & Oncology
DX: C20 Malignant neoplasm of rectum (principal)
CPT/HCPCS: 85025

== ENCOUNTER → 2024-12-05 16:18 | Outpatient (REF) | payer BC, SELFPAY ==
[2024-12-05 14:43] LABS: % Eosinophils 6.1 % (0-6); % Lymphocytes 22.8 % (20.5-51.1); % Monocytes 17.7 % (1.7-9.3); % Neutrophils 52.4 % (42.2-75.2); Absolute Eosinophils 0.2 10^3/uL (0-0.7); Absolute Lymphocytes 0.7 10^3/uL (1.2-3.4); Absolute Monocytes 0.6 10^3/uL (0.1-0.6); Absolute Neutrophils 1.6 10^3/uL (1.4-6.5); Hemoglobin 10.3 g/dL (12.0-16.0); Mean Corp Hgb Conc. 33.2 g/dL (33.0-37.0); Mean Corpuscular Volume 96.3 fL (81.0-99.0); Mean Platelet Volume 9.1 fL (7.4-10.4); Platelet Count 174 10^3/uL (130-400); Red Blood Cell Count 3.22 10^6/uL (4.20-5.40); Red Cell Dist. Width 16.5 % (11.5-14.5); White Blood Cell Count 3.1 10^3/uL (4.8-10.8)
== END ==
LOC: OIDL 16:18
PROVIDERS: ATTENDING PHYSICIAN Internal Medicine Hematology & Oncology
DX: C20 Malignant neoplasm of rectum (principal)
CPT/HCPCS: 85025

== ENCOUNTER → 2025-03-01 08:05 | Outpatient (REF) | payer BC, SELFPAY | LOC: RAD 08:05 | PROVIDERS: ATTENDING PHYSICIAN Internal Medicine Hematology & Oncology; FAMILY PHYSICIAN Physician Assistant Medical | DX: C20 Malignant neoplasm of rectum (principal) | CPT/HCPCS: 71260; 74177; Q9967 ==

== ENCOUNTER → 2025-03-10 09:03 | Outpatient (REF) | payer BC, SELFPAY | LOC: MRI 3T 09:03 | PROVIDERS: ATTENDING PHYSICIAN Surgery; FAMILY PHYSICIAN Physician Assistant Medical | DX: C20 Malignant neoplasm of rectum (principal) | CPT/HCPCS: 72197; A9575 ==

== ENCOUNTER 2025-03-21 06:13 | Day surgery (SDC) | payer BC, SELFPAY | END 2025-03-21 10:01 | disposition home or self-care (01) | LOC: GI 06:13 | PROVIDERS: ATTENDING PHYSICIAN Surgery | DX: Z08 Encounter for follow-up examination after completed treatment for malignant neoplasm (principal); Z85.048 Personal history of other malignant neoplasm of rectum, rectosigmoid junction, and anus; K62.1 Rectal polyp | CPT/HCPCS: 45331; 88305 ==

== ENCOUNTER → 2025-05-31 07:00 | Outpatient (REF) | payer BC, SELFPAY | LOC: RAD 07:00 | PROVIDERS: ATTENDING PHYSICIAN Internal Medicine Hematology & Oncology; FAMILY PHYSICIAN Physician Assistant Medical | DX: C20 Malignant neoplasm of rectum (principal) | CPT/HCPCS: 71260; 74177; Q9967 ==

== ENCOUNTER 2025-06-20 06:19 | Day surgery (SDC) | payer BC, SELFPAY | END 2025-06-20 09:49 | disposition home or self-care (01) | LOC: GI 06:19 | PROVIDERS: ATTENDING PHYSICIAN Surgery | DX: Z12.11 Encounter for screening for malignant neoplasm of colon (principal); D12.8 Benign neoplasm of rectum; Z85.048 Personal history of other malignant neoplasm of rectum, rectosigmoid junction, and anus | CPT/HCPCS: 45380; 88305 ==

== ENCOUNTER → 2025-06-21 17:23 | Outpatient (REF) | payer BC, SELFPAY | LOC: WDC 17:23 | PROVIDERS: ATTENDING PHYSICIAN Physician Assistant | DX: Z12.31 Encounter for screening mammogram for malignant neoplasm of breast (principal) | CPT/HCPCS: 77063; 77067 ==

== ENCOUNTER 2025-06-22 07:10 | Outpatient (REF) | payer BC, SELFPAY ==
[2025-06-22] VITALS (12 sets, daily range): BP systolic 63–115; BP diastolic 67–79
[2025-06-22 08:08] LABS: Hematocrit 32.4 % (37.0-47.0); Hemoglobin 10.7 g/dL (12.0-16.0); Mean Corp Hgb Conc. 33.0 g/dL (33.0-37.0); Mean Corpuscular Volume 87.1 fL (81.0-99.0); Platelet Count 229 10^3/uL (130-400); Red Cell Dist. Width 13.6 % (11.5-14.5)
[2025-06-22 08:12] LABS: INR 0.94; PT 13.0 Sec (11.4-14.6)
== END 2025-06-22 12:10 | disposition home or self-care (01) ==
LOC: RADI 07:10
PROVIDERS: Physician Assistant; ATTENDING PHYSICIAN Internal Medicine Hematology & Oncology; FAMILY PHYSICIAN Physician Assistant Medical
DX: C78.02 Secondary malignant neoplasm of left lung (principal); C20 Malignant neoplasm of rectum
CPT/HCPCS: 32408; 71045; 85027; 85610; 88305; 88333; 99152; C2613

== ENCOUNTER 2025-06-30 06:17 | Outpatient (RCR) | payer BC, SELFPAY | END 2025-06-30 23:59 | disposition home or self-care (01) | LOC: RPT 06:17 | PROVIDERS: ATTENDING PHYSICIAN Family Medicine Geriatric Medicine; FAMILY PHYSICIAN Physician Assistant Medical | DX: M62.89 Other specified disorders of muscle (principal); Z73.6 Limitation of activities due to disability; R15.2 Fecal urgency; C20 Malignant neoplasm of rectum; R32 Unspecified urinary incontinence | CPT/HCPCS: 97110; 97161; 97530 ==

== ENCOUNTER → 2025-07-14 06:59 | Outpatient (REF) | payer BC, SELFPAY | LOC: RAD 06:59 | PROVIDERS: ATTENDING PHYSICIAN Internal Medicine Hematology & Oncology; FAMILY PHYSICIAN Physician Assistant Medical | DX: C20 Malignant neoplasm of rectum (principal) | CPT/HCPCS: 71260; 74177; Q9967 ==

== ENCOUNTER 2025-07-21 10:13 | Outpatient (RCR) | payer BC, SELFPAY | END 2025-07-21 23:59 | disposition home or self-care (01) | LOC: RPT 10:13 | PROVIDERS: ATTENDING PHYSICIAN Family Medicine Geriatric Medicine; FAMILY PHYSICIAN Physician Assistant Medical | DX: M62.89 Other specified disorders of muscle (principal); Z73.6 Limitation of activities due to disability; R15.2 Fecal urgency; C20 Malignant neoplasm of rectum; R32 Unspecified urinary incontinence | CPT/HCPCS: 71260; 74177; 97110; 97112; Q9967 ==

== ENCOUNTER 2025-08-10 16:54 | Outpatient (RCR) | payer BC, SELFPAY | END 2025-08-10 23:59 | disposition home or self-care (01) | LOC: RPT 16:54 | PROVIDERS: ATTENDING PHYSICIAN Family Medicine Geriatric Medicine; FAMILY PHYSICIAN Physician Assistant Medical | DX: M62.89 Other specified disorders of muscle (principal); Z73.6 Limitation of activities due to disability; R15.2 Fecal urgency; C20 Malignant neoplasm of rectum; R32 Unspecified urinary incontinence | CPT/HCPCS: 97110; 97112 ==

== ENCOUNTER → 2025-08-29 13:21 | Outpatient (REF) | payer BC, SELFPAY | LOC: OIDL 13:21 | PROVIDERS: ATTENDING PHYSICIAN Internal Medicine Hematology & Oncology; FAMILY PHYSICIAN Physician Assistant Medical | DX: C20 Malignant neoplasm of rectum (principal) | CPT/HCPCS: 82570; 84156 ==

== ENCOUNTER → 2025-08-30 07:39 | Outpatient (REF) | payer BC, SELFPAY | LOC: MRI 3T 07:39 | PROVIDERS: ATTENDING PHYSICIAN Surgery | DX: C20 Malignant neoplasm of rectum (principal) | CPT/HCPCS: 72197; A9575 ==

== ENCOUNTER → 2025-09-13 14:57 | Outpatient (REF) | payer BC, SELFPAY | LOC: RAD 14:57 | PROVIDERS: ATTENDING PHYSICIAN Internal Medicine Hematology & Oncology | DX: I26.99 Other pulmonary embolism without acute cor pulmonale (principal) | CPT/HCPCS: 71275; Q9967 ==